=== PATIENT | male | born 1965 | race Two or more races ===

== ENCOUNTER 2023-07-18 11:41 | Emergency (ER) | payer OTHER ==
[~2023-07-18] VITALS: Ht 177.8 cm; Wt 74.8 kg
[2023-07-18] MEDS ORDERED: BACLOFEN20 MG PO (11:50)
[2023-07-18] MEDS ORDERED: TAMSULOSIN HCL0.4 MG PO (11:50)
[2023-07-18] MEDS ORDERED: LIPITOR20 MG (11:51)
[2023-07-18] MEDS ORDERED: LOPRESSOR25 MG PO (11:51)
[2023-07-18] MEDS ORDERED: LYRICA50 MG PO (11:51)
[2023-07-18] MEDS ORDERED: DICLOFENAC SODI75 MG PO (18:12)
== END 2023-07-18 21:04 | disposition home or self-care (01) ==
LOC: ER 11:41
DX: M25.551 Pain in right hip (principal); K40.90 Unilateral inguinal hernia, without obstruction or gangrene, not specified as recurrent; G82.20 Paraplegia, unspecified; I10 Essential (primary) hypertension

== ENCOUNTER 2025-03-20 14:00 | Emergency (ER) | payer OTHER ==
[~2025-03-20] VITALS: Ht 182.9 cm; Wt 81.6 kg
[~2025-03-20 14:00] MED LIST: BACLOFEN20 MG PO; DICLOFENAC SODI75 MG PO; LIPITOR20 MG; LOPRESSOR25 MG PO; LYRICA50 MG PO; TAMSULOSIN HCL0.4 MG PO
[2025-03-20] MEDS ORDERED: 0.9 % SODIUM CHLORIDE 500 ML IV ONE (15:30)
[2025-03-20 16:59] LABS: BASO % 0.2 % (0.1-1.2); EOS # 0.26 (0.04-0.54); EOS % 2.1 % (0.7-7.0); LYMPH # 1.94 (1.18-3.74); LYMPH % 16.0 % (19.3-53.1); MEAN PLATELET VOLUME 8.70 fl (9.4-12.4); MONO # 0.62 (0.24-0.82); MONO % 5.1 % (4.7-12.5); NEUT # 9.24 (1.56-6.13); NEUT % 76.4 % (34.0-71.1); RED CELL DISTRIBUTION WIDTH 12.7 % (11.6-14.4)
[2025-03-20 17:09] LABS: URINE APPEARANCE Clear; URINE BILIRRUBIN Negative (NEGATIVE); URINE BLOOD Moderate; URINE COLOR Yellow; URINE GLUCOSE Negative (NEGATIVE); URINE KETONE Negative (NEGATIVE); URINE LEUKOCYTE Large; URINE NITRATE Negative; URINE PROTEIN Negative (NEGATIVE); URINE UROBILINOGEN 0.2 E.U./dl
[2025-03-20 17:10] LABS: URINE BACTERIA 45.5 uL (0.0-1933); URINE RBC 40.6 uL (0.0-20.8); URINE WBC 936.4 uL (0.0-23.2)
[2025-03-20 17:18] LABS: INR 0.97
[2025-03-20 17:24] LABS: ALT/SGPT 48.0 U/L (12-78); AST/SGOT 25.0 U/L (15-37); BILIRUBIN TOTAL 0.54 mg/dL (0.3-1.2); BUN CREA RATIO 16.0 (7.0-25.0); CREATININE SERUM 0.81 mg/dL (0.70-1.30); GFR 96.88; GLOBULINA 4.2 G/DL (2.4-3.5); GLUCOSE FASTING 101.0 mg/dL (65-100); OSMOLALITY SERUM 285.0 MOSM/KG (275-295)
[2025-03-20 17:30] LABS: URINE CAST 0.00 uL (0.0-1.40); URINE EPITHELIAL CELLS 0.9 uL (0.0-38.8)
[2025-03-20] MEDS ORDERED: CIPRO500 MG PO (19:05)
[2025-03-20] MEDS ORDERED: METRONIDAZOLE500 MG PO (19:49)
[2025-03-20] MEDS ORDERED: PEPCID AC20 MG PO (19:49)
[2025-03-20] MEDS ORDERED: CEFTRIAXONE SODIUM 1,000 MG VIAL IV ONE (20:00)
[2025-03-20] MEDS ORDERED: CEFTRIAXONE SODIUM 1,000 MG VIAL ONE (20:06)
== END 2025-03-21 01:10 | disposition home or self-care (01) ==
LOC: ER 14:00
PROVIDERS: General Practice
DX: R31.9 Hematuria, unspecified (principal); I11.9 Hypertensive heart disease without heart failure; I10 Essential (primary) hypertension; G62.9 Polyneuropathy, unspecified; G82.20 Paraplegia, unspecified; K62.89 Other specified diseases of anus and rectum; N39.0 Urinary tract infection, site not specified
CPT/HCPCS: 36415; 74176; 96365; 96366; 99284; J0696; J7042